=== PATIENT | male | born 1935 | race Caucasian/White ===

== ENCOUNTER 2017-03-01 12:45 | Inpatient (IN) | payer MEDICARE, BC ==
[~2017-03-01] VITALS: Ht 182.9 cm; Wt 117.1 kg
[2017-03-01] MEDS ORDERED: CALCIUM 600/VIT1 CA1 PO (13:53)
[2017-03-01] MEDS ORDERED: COUMADIN 5MG5 MG/TAB PO (13:56)
[2017-03-01] MEDS ORDERED: HCTZ 25MG TAB25 MG PO (13:57)
[2017-03-01] MEDS ORDERED: MAG-OX 400400 MG/TAB PO (14:02)
[2017-03-01] MEDS ORDERED: K-DUR20 MEQ PO (14:04)
[2017-03-01] MEDS ORDERED: BETAPACE 80MG80 MG PO (14:05)
[2017-03-01] MEDS ORDERED: TYLENOL 500MG500 MG PO (14:06)
[2017-03-01 14:08] VITALS: BP 174/87; PULSE 57; TEMP 97.4
[2017-03-01 18:29] VITALS: BP 154/66; PULSE 55; TEMP 97.5
[2017-03-01 22:13] VITALS: BP 140/63; PULSE 52; TEMP 97.5
[2017-03-02] VITALS (12 sets, daily range): BP systolic 130–178; BP diastolic 66–87; PULSE 57–74; TEMP 97.3–98.9
[2017-03-02 07:30] LABS: INR 2.2 (0.8-3.0); PROTHROMBIN TIME 25.3 SECONDS (9.7-12.8)
[2017-03-02 07:31] LABS: BASO % 0.3 % (0.0-2.0); EOS # 0.2 (0.0-0.7); EOS % 1.4 % (0-4.0); GRAN # 9.2 (1.4-6.5); GRAN % 82.1 % (42.2-75.2); HEMATOCRIT 43.3 % (42.0-52.0); HEMOGLOBIN 14.6 g/dl (13.5-18.0); LYMPH # 0.8 (1.2-3.4); MEAN CELL VOLUME 94 fl (80.0-100.0); MEAN CORPUSCULAR HEMOGLOBIN 32 pg (27.0-31.0); MEAN CORPUSCULAR HGB CONC 34 g/dl (33.0-37.0); MEAN PLATELET VOLUME 9.1 fl (7.4-10.4); MONO % 8.8 % (1.7-9.3); PLATELET COUNT 194 K/mm3 (130-400); RED BLOOD COUNT 4.63 M/mm3 (4.20-5.60); REDCELL DISTRIBUTION WIDTH-CV 14.6 % (11.5-14.5); WHITE BLOOD COUNT 11.2 K/mm3 (4.8-10.8)
[2017-03-02 07:39] LABS: ADJUSTED CALCIUM 8.9 mg/dL (8.4-10.2); ALBUMIN 3.6 gm/dL (3.5-5.0); BILIRUBIN,TOTAL 2.4 mg/dL (0.0-1.0); CALCIUM 8.6 mg/dL (8.4-10.2); CREATININE, serum 1.03 mg/dL (0.66-1.25); POTASSIUM 3.8 mmol/L (3.4-5.0); TOTAL PROTEIN 7.4 gm/dL (6.4-8.2)
[2017-03-03 02:03] VITALS: BP 161/73; PULSE 64; TEMP 98
[2017-03-03 05:47] VITALS: BP 145/60; PULSE 63; TEMP 98.2
[2017-03-03 07:55] LABS: INR 1.5 (0.8-3.0); PROTHROMBIN TIME 16.8 SECONDS (9.7-12.8)
[2017-03-03 07:59] LABS: BASO % 0.3 % (0.0-2.0); EOS % 0.3 % (0-4.0); GRAN # 9.1 (1.4-6.5); GRAN % 82.4 % (42.2-75.2); HEMATOCRIT 40.3 % (42.0-52.0); HEMOGLOBIN 13.4 g/dl (13.5-18.0); LYMPH # 0.8 (1.2-3.4); LYMPH % 7.3 % (20.0-51.0); MEAN CELL VOLUME 94 fl (80.0-100.0); MEAN CORPUSCULAR HEMOGLOBIN 31 pg (27.0-31.0); MEAN CORPUSCULAR HGB CONC 33 g/dl (33.0-37.0); MEAN PLATELET VOLUME 9.1 fl (7.4-10.4); MONO % 9.1 % (1.7-9.3); PLATELET COUNT 167 K/mm3 (130-400); RED BLOOD COUNT 4.31 M/mm3 (4.20-5.60); REDCELL DISTRIBUTION WIDTH-CV 14.4 % (11.5-14.5)
[2017-03-03 08:07] LABS: ADJUSTED CALCIUM 8.6 mg/dL (8.4-10.2); ALBUMIN 3.5 gm/dL (3.5-5.0); CALCIUM 8.2 mg/dL (8.4-10.2); CREATININE, serum 0.88 mg/dL (0.66-1.25); POTASSIUM 3.5 mmol/L (3.4-5.0); TOTAL PROTEIN 7.2 gm/dL (6.4-8.2)
[2017-03-03 09:43] VITALS: BP 163/77; PULSE 63; TEMP 98.2
[2017-03-03 14:12] VITALS: BP 157/69; PULSE 60; TEMP 98
[2017-03-03 17:28] VITALS: BP 161/77; PULSE 65; TEMP 98.2
[2017-03-03 18:29] LABS: ADJUSTED CALCIUM 8.5 mg/dL (8.4-10.2); ALBUMIN 3.6 gm/dL (3.5-5.0); CALCIUM 8.2 mg/dL (8.4-10.2); CREATININE, serum 0.86 mg/dL (0.66-1.25); POTASSIUM 3.6 mmol/L (3.4-5.0); TOTAL PROTEIN 7.3 gm/dL (6.4-8.2)
[2017-03-03 20:17] VITALS: BP 166/70; PULSE 64; TEMP 99
[2017-03-04] VITALS (13 sets, daily range): BP systolic 143–181; BP diastolic 31–90; PULSE 54–84; TEMP 97.8–98.9
[2017-03-04 05:01] LABS: BASO % 0.3 % (0.0-2.0); EOS # 0.1 (0.0-0.7); EOS % 1.2 % (0-4.0); GRAN # 8.4 (1.4-6.5); GRAN % 79.1 % (42.2-75.2); HEMATOCRIT 38.7 % (42.0-52.0); HEMOGLOBIN 13.1 g/dl (13.5-18.0); LYMPH % 9.1 % (20.0-51.0); MEAN CELL VOLUME 91 fl (80.0-100.0); MEAN CORPUSCULAR HEMOGLOBIN 31 pg (27.0-31.0); MEAN CORPUSCULAR HGB CONC 34 g/dl (33.0-37.0); MEAN PLATELET VOLUME 9.1 fl (7.4-10.4); MONO # 1.1 (0.1-0.6); MONO % 9.8 % (1.7-9.3); PLATELET COUNT 159 K/mm3 (130-400); RED BLOOD COUNT 4.27 M/mm3 (4.20-5.60); WHITE BLOOD COUNT 10.7 K/mm3 (4.8-10.8)
[2017-03-04 05:08] LABS: INR 1.3 (0.8-3.0); PROTHROMBIN TIME 14.1 SECONDS (9.7-12.8)
[2017-03-04 05:16] LABS: ADJUSTED CALCIUM 8.7 mg/dL (8.4-10.2); ALBUMIN 3.3 gm/dL (3.5-5.0); BILIRUBIN,TOTAL 2.6 mg/dL (0.0-1.0); CALCIUM 8.1 mg/dL (8.4-10.2); CREATININE, serum 0.81 mg/dL (0.66-1.25); POTASSIUM 3.3 mmol/L (3.4-5.0)
[2017-03-05 02:42] VITALS: BP 137/72; PULSE 62; TEMP 97.5
[2017-03-05 06:20] VITALS: BP 145/59; PULSE 55; TEMP 98
[2017-03-05 07:01] LABS: HEMATOCRIT 40.4 % (42.0-52.0); MEAN CELL VOLUME 90 fl (80.0-100.0); MEAN CORPUSCULAR HEMOGLOBIN 31 pg (27.0-31.0); MEAN CORPUSCULAR HGB CONC 35 g/dl (33.0-37.0); MEAN PLATELET VOLUME 8.9 fl (7.4-10.4); PLATELET COUNT 184 K/mm3 (130-400); RED BLOOD COUNT 4.49 M/mm3 (4.20-5.60); REDCELL DISTRIBUTION WIDTH-CV 13.7 % (11.5-14.5); WHITE BLOOD COUNT 9.4 K/mm3 (4.8-10.8)
[2017-03-05 07:05] LABS: ADD PATHOLOGY DIFF REVIEW NO
[2017-03-05 07:08] LABS: INR 1.3 (0.8-3.0); PROTHROMBIN TIME 14.2 SECONDS (9.7-12.8)
[2017-03-05 07:11] LABS: CREATININE, serum 0.91 mg/dL (0.66-1.25); MAGNESIUM 1.7 mg/dL (1.6-2.3)
[2017-03-05 07:24] LABS: BAND 14 % (0-10); METAMYELOCYTE 1 % (0-0); NEUTROPHILS 78 % (42.0-75.2); PLATELET ESTIMATE NORMAL (NORMAL); TOTAL CELLS COUNTED 100
[2017-03-05] MEDS ORDERED: NORCO 325 MG-51 TAB PO (08:12)
[2017-03-05 10:13] VITALS: BP 140/64; PULSE 65; TEMP 97.7
[2017-03-05 18:49] VITALS: BP 140/73; PULSE 64; TEMP 98.1
[2017-03-05 21:16] VITALS: BP 151/66; PULSE 65; TEMP 98.2
[2017-03-06 01:00] VITALS: BP 167/68; PULSE 66; TEMP 97
[2017-03-06 04:04] VITALS: BP 167/82; PULSE 64; TEMP 98
[2017-03-06 07:13] LABS: CALCIUM 8.3 mg/dL (8.4-10.2); CREATININE, serum 1.08 mg/dL (0.66-1.25); MAGNESIUM 1.7 mg/dL (1.6-2.3); POTASSIUM 3.4 mmol/L (3.4-5.0)
[2017-03-06] MEDS ORDERED: K-TAB20 PO (09:58)
[2017-03-06] MEDS ORDERED: DEMADEX 20MG20 M1 PO (10:04)
[2017-03-06] MEDS ORDERED: MAG-OX 400400 MG/TAB PO (10:06)
[2017-03-06 10:26] VITALS: BP 135/74; PULSE 64; TEMP 98.3
== END 2017-03-06 15:00 | disposition home or self-care (01) | DRG 417 ==
LOC: SURG 12:45
PROVIDERS: Family Medicine; Internal Medicine Cardiovascular Disease; Nurse Practitioner Family; Physician Assistant; Surgery
PROC: 0FC98ZZ Extirpation of Matter from Common Bile Duct, Via Natural or Artificial Opening Endoscopic (ICD-10-PCS; 2017-03-02)
PROC: BF101ZZ Fluoroscopy of Bile Ducts using Low Osmolar Contrast (ICD-10-PCS; 2017-03-04)
PROC: 0FT44ZZ Resection of Gallbladder, Percutaneous Endoscopic Approach (ICD-10-PCS; principal; 2017-03-04 15:30)
DX: K80.62 Calculus of gallbladder and bile duct with acute cholecystitis without obstruction (principal); K85.10 Biliary acute pancreatitis without necrosis or infection; I50.33 Acute on chronic diastolic (congestive) heart failure; I11.0 Hypertensive heart disease with heart failure; E87.6 Hypokalemia; I48.0 Paroxysmal atrial fibrillation; Z79.01 Long term (current) use of anticoagulants
CPT/HCPCS: 99222-AI; 99232-AI; 99233-AI; 99239; A9284; C1769; J1170; J1885; J1940; J2270; J2405; J2704; J3010; J3430; J3480; J7030; Q9967